=== PATIENT | male | born 1995 | race Caucasian/White ===

== ENCOUNTER 2019-07-02 20:40 | Emergency (ER) | payer BC ==
--- NOTE | 2019-07-02 22:27 | EDM.PDOC ---
ED HPI GENERAL MEDICAL PROBLEM - General Chief Complaint: Respiratory Problem Stated Complaint: FLU SYMTOMS Time Seen by Provider: 07/02/19 21:47 Source of Information: Reports: Patient History Limitations: Reports: No Limitations - History of Present Illness INITIAL COMMENTS - FREE TEXT/NARRATIVE: HISTORY OF PRESENT ILLNESS: Patient is a 23-year-old male who complains of 2- week history of cough productive of yellow sputum. Reports nausea but no vomiting. Reports diarrhea. Denies any abdominal pain . has sore throat and generalized body aches for the past 4 days. Denies any neck stiffness or rash. States family was sick with influenza earlier. Patient recently traveled from [place]. No recent international travel. Had tactile fever but none documented at home REVIEW OF SYSTEMS: Other than the symptoms associated with the present events, the following is reported with regard to recent health: General: (+) fever. HENT: (-) congestion. Mild pharyngeal erythema. No exudate. No trismus. No phonation changes. Uvula midline. Airway widely patent. Respiratory: (+) cough. Cardiovascular: (-) chest pain. GI: (-) abdominal pain. : (-) urinary complaints. Musculoskeletal: (+) generalized myalgias Endocrine: (-) generalized weakness. Neurological: (-) localized weakness. Skin: (-) rash PAST MEDICAL HISTORY: reviewed as per nursing notes SOCIAL HISTORY: reviewed as per nursing notes, MEDICATIONS: Per nurse's note ALLERGIES: Per nurse's note, reviewed by me PHYSICAL EXAMINATION: GENERALIZED APPEARANCE: well developed, well nourished in no distress VITAL SIGNS: Per nurse's note, reviewed by me SKIN: Warm, dry; (-) cyanosis; (-) rash. HEAD: (-) scalp swelling, (-) tenderness. EYES: (-) conjunctival pallor, (-) scleral icterus. ENMT: (-) stridor; mucous membranes moist. NECK: (-) tenderness, (-) stiffness, CHEST AND RESPIRATORY: (-) rales, (-) rhonchi, (-) wheezes; breath sounds equal bilaterally. HEART AND CARDIOVASCULAR: (-) irregularity; (-) murmur, (-) gallop. ABDOMEN AND GI: Soft; (-) tenderness, (-) guarding, (-) rebound, (-) palpable masses, EXTREMITIES: (-) deformity, (-) edema. NEURO AND PSYCH: Alert. Cranial nerves grossly intact; strength symmetric. gait steady DIAGNOSTICS: influenza negative strep negative COVID-19: pending CXR: pending EMERGENCY DEPARTMENT COURSE AND TREATMENT: Patient's condition remained stable during Emergency Department evaluation. Patient did not want to wait for CXR results. The patient wishes to leave the Emergency Department. This action is against my medical advice to the patient and the decision was made with informed refusal. The patient was told that waiting for results is necessary and a full explanation of the rationale was given. The risks of leaving were explained to the patient and include, but are not limited to, worsening of known or currently unknown conditions, permanent disability and from undiagnosed or untreated conditions. The patient has the capacity to make this informed decision and understands the clinical situation and my explanation of the risks of leaving. The patient voluntarily accepts these risks and a signed AMA form documenting our conversation was obtained. The patient was given the opportunity to ask questions and reconsider. The patient was encouraged to return to the Emergency Department at any time for further care. PLAN AND FOLLOW-UP: Patient received written and verbal instructions regarding this condition. Return to ED immediately with any new or worsening symptoms. Follow up to be arranged by patient with pcp in 1-2 days for further evaluation. Given discharge precautions. Patient expressed verbal understanding. Headache Pain Score (Numeric/FACES): 7 - Related Data Allergies Allergy/AdvReac Type Severity Reaction Status Date / Time No Known Allergies Allergy Verified 07/02/19 21:49 Home Meds: Home Meds . [No Known Home Meds] 07/02/19 [History] Past Medical History - Past Surgical History Male Surgical History: Reports: Vasectomy Social & Family History - Family History Family Medical History: Noncontributory - Tobacco Use Smoking Status *Q: Never Smoker - Recreational Drug Use Recreational Drug Use: No ED ROS GENERAL - Review of Systems Review Of Systems: See Below (see dictation) ED EXAM, GENERAL - Physical Exam Exam: See Below (see dictation) Course - Vital Signs Last Recorded V/S: Last Vital Signs Temp 97.5 F 07/02/19 21:44 Pulse 91 07/02/19 21:44 Resp 18 07/02/19 21:44 BP 126/58 L 07/02/19 21:44 Pulse Ox 96 07/02/19 21:44 - Orders/Labs/Meds Orders: Active Orders 24 hr Category Date Time Status CORONAVIRUS (COVID-19) PCR [MREF] Stat Lab 07/03/19 00:34 Ordered CULTURE STREP A CONFIRMATION [RM] Stat Lab 07/02/19 21:55 Results STREP SCRN A RAPID W CULT CONF [RM] Stat Lab 07/02/19 21:55 Results Isolation [COMM] Routine Oth 07/02/19 21:03 Active Isolation [COMM] Routine Oth 07/02/19 22:28 Active Departure - Departure Time of Disposition: 00:30 Disposition: Against Medical Advice 07 Condition: Good Clinical Impression: Bronchitis, Viral illness - Discharge Information *PRESCRIPTION DRUG MONITORING PROGRAM REVIEWED*: Not Applicable *COPY OF PRESCRIPTION DRUG MONITORING REPORT IN PATIENT CECE: Not Applicable Instructions: Acute Bronchitis, Adult, [id number] Referrals: PCP,Tevin [Primary Care Provider] - Yoana Amador [Ordering Only Provider] - 2 Days Forms: ED Department Discharge Additional Instructions: The following information is given to patients seen in the emergency department who are being discharged to home. This information is to outline your options for follow-up care. We provide all patients seen in our emergency department with a follow-up referral. The need for follow-up, as well as the timing and circumstances, are variable depending upon the specifics of your emergency department visit. If you don't have a primary care physician on staff, we will provide you with a referral. We always advise you to contact your personal physician following an emergency department visit to inform them of the circumstance of the visit and for follow-up with them and/or the need for any referrals to a consulting specialist. The emergency department will also refer you to a specialist when appropriate. This referral assures that you have the opportunity for follow-up care with a specialist. All of these measure are taken in an effort to provide you with optimal care, which includes your follow-up. Under all circumstances we always encourage you to contact your private physician who remains a resource for coordinating your care. When calling for follow-up care, please make the office aware that this follow-up is from your recent emergency room visit. If for any reason you are refused follow-up, please contact the [facility] Emergency Department at and asked to speak to the emergency department charge nurse. Sepsis Event Note - Evaluation Sepsis Screening Result: No Definite Risk - Focused Exam Vital Signs: Vital Signs Temp Pulse Resp BP Pulse Ox 07/02/19 21:44 97.5 F 91 18 126/58 L 96 Date Exam was Performed: 07/03/19 Time Exam was Performed: 03:50 - My Orders Last 24 Hours: My Active Orders 07/02/19 22:28 Isolation [COMM] Routine 07/03/19 00:34 CORONAVIRUS (COVID-19) PCR [MREF] Stat - Assessment/Plan Last 24 Hours: My Active Orders 07/02/19 22:28 Isolation [COMM] Routine 07/03/19 00:34 CORONAVIRUS (COVID-19) PCR [MREF] Stat
--- NOTE | 2019-07-03 00:35 | CR ---
INDICATION: 3 images. chest pain. no prior TECHNIQUE: Chest 2 views. COMPARISON: None. FINDINGS: Cardiovascular and mediastinum: Heart size and vasculature are normal in caliber and appearance. Mediastinum is within normal limits. Lungs and pleural spaces: Lungs are clear. No sign of infiltrate or mass. No sign of pleural effusion. No pneumothorax. Bones and soft tissues: No significant findings. IMPRESSION: Unremarkable chest. Dictated by: Andrez Marshall MD @ 07/03/2019 00:33:22 (Electronically Signed)
== END 2019-07-03 00:35 | disposition left against medical advice (07) ==
LOC: MW.ED 20:40
DX: J40 Bronchitis, not specified as acute or chronic (principal); B34.9 Viral infection, unspecified
CPT/HCPCS: 71046; 87081; 87804; 87880; 99284; U0001